=== PATIENT | female | born 1995 | race Caucasian/White ===

== ENCOUNTER 2019-06-23 20:58 | Emergency (ER) | payer OTHER ==
[2019-06-23 21:04] VITALS: TEMP 99.6; BMI 13.2
--- NOTE | 2019-06-23 21:34 | PDOC ---
History of Present Illness - General Chief Complaint: Vaginal Bleeding Stated Complaint: VAGINAL BLEEDING/ABD PAIN Time Seen by Provider: 06/23/19 21:19 - History of Present Illness Initial Comments: 06/23/19 21:52 Pt is a 24y/o female with no PMH who presents with nausea and vomiting that began around noon today. She reports vomiting more than 10x. She also reports vaginal bleeding that began 5 days ago and lasted 3 days. She reports some pinkish discharge during this time as well with abnormal smell. She has had intermittent mid abdominal pain and lumbar back pain since the spotting. This bleeding in between periods has been occurring recently. She tried a heating pad which made the symptoms worse. She denies fever, chills, chest pain, shortness of breath, dysuria, diarrhea. She has had some constipation which is not common for her. She also reports unintentional weight loss since December because sometimes eating causes nausea. Her LMP ended about 2 weeks ago and was 7 days. She reports her period usually lasts about 5 days. She denies being sexually active. She denies IUD or oral contraceptives. She denies alcohol or marijuana use. She has not previously seen a [employer] or GI dr. Past History - Past Medical History Allergies/Adverse Reactions: Allergies Allergy/AdvReac Type Severity Reaction Status Date / Time No Known Allergies Allergy Verified 06/23/19 21:04 Home Medications: Ambulatory Orders Ondansetron [Zofran *Odt*] 4 mg SL Q8H PRN #12 od.tablet 06/24/19 Anemia: No GI Disorders: No HTN: No - Psycho Social/Smoking Cessation Hx Smoking History: Never smoked Hx Alcohol Use: No Drug/Substance Use Hx: No (denies) Review of Systems - Review of Systems Constitutional: No: Chills, Fever Respiratory: No: Shortness of Breath Cardiac (ROS): No: Chest Pain : No: Dysuria *Physical Exam - Vital Signs Last Vital Signs Temp Pulse Resp BP Pulse Ox 99.6 F 98 H 19 97/63 97 06/23/19 21:00 06/23/19 21:00 06/23/19 21:00 06/23/19 21:00 06/23/19 21:00 ED Treatment Course - LABORATORY CBC & Chemistry Diagram: 06/23/19 23:00 06/23/19 23:00 Medical Decision Making - Medical Decision Making 06/23/19 22:41 Pt is a 24y/o female with no PMH who presents with nausea and vomiting that began around noon today. She reports vomiting more than 10x. She also reports vaginal bleeding that began 5 days ago and lasted 3 days. ddx: , ovarian cyst, endometriosis, anemia, gastric ulcer, pancreatitis orders: CBC, CMP, TSH, B12, folic acid, pelvic and abdominal U/S, 4mg Zofran ODT , 1L NS 06/23/19 23:28 Pt reports nausea is resolved. Abdominal U/S done. Waiting for pt to have full bladder for pelvic. Hb 12.9, normal MCV test negative 06/24/19 00:24 abdominal U/S negative 06/24/19 01:05 t-bili 1.6, B12 slightly low 192, TSH and folate normal neutrophils elevated but no leukocytosis UA negative Discharge - Discharge Information Problems reviewed: Yes Clinical Impression/Diagnosis: Nausea Condition: Improved Disposition: HOME - Additional Discharge Information Prescriptions: Ondansetron [Zofran *Odt*] 4 mg SL Q8H PRN #12 od.tablet PRN Reason: Nausea - Follow up/Referral Referrals: Licha Butterfield MD [Primary Care Provider] - - Patient Discharge Instructions - Post Discharge Activity Work/Back to School Note: Back to Work
[2019-06-23] MEDS ORDERED: ONDANSETRON 4 MG/2 ML VIAL IVPUSH ONE (21:35)
[2019-06-23] MEDS ORDERED: ONDANSETRON *ODT* 4 MG TABLET SL ONE (21:59)
[2019-06-23] MEDS ORDERED: ONDANSETRON *ODT* 4 MG TABLET ONE (22:01)
[2019-06-23] MEDS ORDERED: SODIUM CHLORIDE 1,000 ML IV STA (22:21)
[2019-06-23 22:24] LABS: PH,URINE 8.5 (5.0-8.0); URINE APPEARANCE CLEAR; URINE BILIRUBIN NEGATIVE (NEGATIVE); URINE COLOR YELLOW; URINE GLUCOSE (UA) NEGATIVE (NEGATIVE); URINE KETONE TRACE (NEGATIVE); URINE LEUK ESTERASE NEGATIVE (NEGATIVE); URINE NITRITE NEGATIVE (NEGATIVE); URINE PROTEIN NEGATIVE (NEGATIVE)
--- NOTE | 2019-06-23 22:34 | PDOC ---
Documentation entered by Jacqueline Reyes SCRIBE, acting as scribe for Saundra Garcia MD. Saundra Garcia MD: This documentation has been prepared by the dimitryeEric Adrianna, SCRIBE, under my direction and personally reviewed by me in its entirety. I confirm that the documentation accurately reflects all work, treatment, procedures, and medical decision making performed by me. Attending Attestation - Resident Resident Name: Ann Wooten - ED Attending Attestation I have performed the following: I have examined & evaluated the patient, The case was reviewed & discussed with the resident, I agree w/resident's findings & plan, Exceptions are as noted - HPI HPI: The patient is a 24 year old female, with no significant PMH, who presents to the ED for evaluation vaginal bleeding for 3 days, and nausea and vomit that began at noon today. Patient endorses vaginal bleeding that began 5 days ago, lasted for 3 days, with pink discharge a foul odor. She reports mid-abdominal pain and low back discomfort since the spotting stopped.. She reports more than ten episodes of nausea and NBNB vomit today. Allergies: NKA, NKDA Surgical History: None reported Social History: Denies EtOH, tobacco, or illicit drug use PCP: Dr. Butterfield - Physicial Exam PE: GENERAL: Awake, alert, and fully oriented, in no acute distress. Appears thin, mild pallor HEAD: No signs of trauma EYES: PERRLA, EOMI, sclera anicteric, conjunctiva clear ENT: Auricles normal inspection, hearing grossly normal, nares patent, oropharynx clear without exudates. Dry mucosa NECK: Normal ROM, supple, no lymphadenopathy, JVD, or masses LUNGS: Breath sounds equal, clear to auscultation bilaterally. No wheezes, and no crackles HEART: Regular rate and rhythm, normal S1 and S2, no murmurs, rubs or gallops ABDOMEN: Soft, diffusely tender, worst in pelvic area. Normoactive bowel sounds. +Guarding, no rebound. No masses EXTREMITIES: Normal range of motion, no edema. No clubbing or cyanosis. No cords, erythema, or tenderness NEUROLOGICAL: Cranial nerves II through XII grossly intact. Normal speech, normal gait. Motor and sensation intact SKIN: Warm, dry, normal turgor, no rashes or lesions noted. - Medical Decision Making Pt presents with irregular periods, recent weight loss, spotting, poor appetite. Unclear etiology. DDx includes hyperthyroid, endometriosis. Malignancy is possible but much less likely. Will obtain pelvic ultrasound ( transabdominal, as she has never been sexually active), labs.
[2019-06-23 23:17] LABS: BASO % 0.2 % (0-2.0); HEMATOCRIT 37.8 % (32.4-45.2); HEMOGLOBIN 12.9 GM/dL (10.7-15.3); MCH 32.7 pg (25.7-33.7); MCHC 34.1 g/dl (32.0-36.0); MEAN CELL VOLUME 96.1 fl (80-96); MEAN PLT VOLUME 10.1 fl (7.5-11.1); MONO % 3.8 % (3.8-10.2); PLATELET COUNT 152 K/MM3 (134-434); RBC 3.93 M/mm3 (3.60-5.2); RDW 12.6 % (11.6-15.6); WHITE BLOOD COUNT 8.1 K/mm3 (4.0-10.0)
[2019-06-24 00:49] LABS: ALBUMIN 4.3 g/dl (3.4-5.0); BILIRUBIN,TOTAL 1.6 mg/dL (0.2-1); BLOOD UREA NITROGEN 16.6 mg/dL (7-18); CALCIUM 8.9 mg/dL (8.5-10.1); CREATININE 0.7 mg/dL (0.55-1.3); POTASSIUM 3.7 mmol/L (3.5-5.1); TOT PROT 7.2 g/dl (6.4-8.2)
[2019-06-24] MEDS ORDERED: ONDANSETRON 4 MG/2 ML VIAL IVPUSH ONE (01:35)
[2019-06-24] MEDS ORDERED: ONDANSETRON 4 MG/2 ML VIAL ONE (01:53)
[2019-06-24 02:10] LABS: ANISOCYTOSIS 0; HELMET CELLS 0; HOWELL-JOLLY BODIES 0; MACROCYTOSIS 0; OVALOCYTE 0; PLATELET ESTIMATE NORMAL; ROULEAU 0; SICKELED CELLS 0; TARGET CELLS 0; TEAR DROP CELLS 0; TOXIC GRANULATION 0
[2019-06-24 02:27] VITALS: BP 111/64; PULSE 99
== END 2019-06-24 03:00 | disposition home or self-care (01) ==
LOC: JER 20:58
PROC: 3E0337Z Introduction of Electrolytic and Water Balance Substance into Peripheral Vein, Percutaneous Approach (ICD-10-PCS; principal; 2019-06-23)
PROC: 3E033GC Introduction of Other Therapeutic Substance into Peripheral Vein, Percutaneous Approach (ICD-10-PCS; 2019-06-23)
DX: R11.0 Nausea (principal)
CPT/HCPCS: 36415; 76705-TC; 76856-TC; 80053; 81003; 82607; 82746; 83690; 84443; 84703; 85025; 87086; 96361; 96374; 99283-25; J7030; Q0162

== ENCOUNTER 2022-07-25 12:15 | Emergency (ER) | payer OTHER ==
[2022-07-25 12:23] VITALS: TEMP 98; BMI 18.8
[2022-07-25] MEDS ORDERED: ONDANSETRON 4 MG/2 ML VIAL IVPUSH ONE (13:28)
[2022-07-25] MEDS ORDERED: LACTATED RINGERS SOLUTION 1,000 ML/1,000 ML INFUS.BAG IV STA (13:29)
[2022-07-25] MEDS ORDERED: PANTOPRAZOLE SODIUM 40 MG VIAL IVPUSH ONE (13:30)
[2022-07-25] MEDS ORDERED: PANTOPRAZOLE SODIUM 40 MG/100 ML BAG IVPB ONE (13:35)
[2022-07-25] MEDS ORDERED: ONDANSETRON 4 MG/2 ML VIAL ONE (13:35)
[2022-07-25 14:39] LABS: HEMATOCRIT 38.4 % (32.4-45.2); HEMOGLOBIN 12.9 GM/dL (10.7-15.3); MCHC 33.6 g/dl (32.0-36.0); MEAN CELL VOLUME 95.2 fl (80-96); MEAN PLT VOLUME 9.7 fl (7.5-11.1); PLATELET COUNT 216 10^3/uL (134-434); RBC 4.04 M/mm3 (3.60-5.2); RDW 12.8 % (11.6-15.6)
[2022-07-25 14:45] LABS: BLOOD UREA NITROGEN 19.9 mg/dL (7-18); CALCIUM 9.2 mg/dL (8.5-10.1); MAGNESIUM 1.9 mg/dL (1.8-2.4)
[2022-07-25 14:46] LABS: ALBUMIN 4.4 g/dl (3.4-5.0); INR 1.17 (0.83-1.09); PROTHROMBIN TIME (PATIENT) 13.6 SEC (9.7-13.0)
[2022-07-25 14:48] LABS: ACTIVATED PTT 26.9 SECONDS (25.2-36.5); CREATININE 0.9 mg/dL (0.55-1.3)
[2022-07-25 14:50] LABS: TOT PROT 7.6 g/dl (6.4-8.2)
[2022-07-25 14:51] LABS: EPI CELLS 13 /uL (0-25.1); HYALINE CASTS 1 /uL (0-3.1); PH,URINE 5.5 (5.0-8.0); URINE APPEARANCE CLOUDY; URINE BACTERIA 83 /uL (0-1359); URINE BILIRUBIN NEGATIVE (NEGATIVE); URINE COLOR ORANGE; URINE GLUCOSE (UA) NEGATIVE (NEGATIVE); URINE KETONE 1+ (NEGATIVE); URINE LEUK ESTERASE 1+ (NEGATIVE); URINE NITRITE NEGATIVE (NEGATIVE); URINE PROTEIN 2+ (NEGATIVE); URINE RBC 3759 /uL (0-23.9); URINE WBC 36 /uL (0-25.8)
[2022-07-25 15:01] LABS: ANISOCYTOSIS 0; MACROCYTOSIS 0
[2022-07-25 15:04] VITALS: BP 107/77; PULSE 74; RESP 16
== END 2022-07-25 15:10 | disposition home or self-care (01) ==
LOC: JER 12:15
PROC: 3E033GC Introduction of Other Therapeutic Substance into Peripheral Vein, Percutaneous Approach (ICD-10-PCS; principal; 2022-07-25)
PROC: 3E033GC Introduction of Other Therapeutic Substance into Peripheral Vein, Percutaneous Approach (ICD-10-PCS; 2022-07-25)
PROC: 3E0337Z Introduction of Electrolytic and Water Balance Substance into Peripheral Vein, Percutaneous Approach (ICD-10-PCS; 2022-07-25)
DX: R11.2 Nausea with vomiting, unspecified (principal)
CPT/HCPCS: 36415; 71046-TC-FY; 80053; 81003; 83735; 85025; 85610; 85730; 86850; 86900; 86901; 87086; 99284-25